=== PATIENT | female | born 1950 | race Caucasian/White ===

== ENCOUNTER 2019-12-26 10:12 | Emergency (ER) | payer MEDICARE, MEDICAID ==
[~2019-12-26] VITALS: Ht 157.5 cm; Wt 57.7 kg
[2019-12-26 10:19] VITALS: TEMP 98.5
[2019-12-26 12:21] VITALS: BP 122/60; PULSE 79
== END 2019-12-26 11:45 | disposition home or self-care (01) ==
LOC: COL.ER 10:12
DX: S06.0X1A Concussion with loss of consciousness of 30 minutes or less, initial encounter (principal); R40.2410 Glasgow coma scale score 13-15, unspecified time; Z88.0 Allergy status to penicillin; Z88.6 Allergy status to analgesic agent; Z88.8 Allergy status to other drugs, medicaments and biological substances; W01.0XXA Fall on same level from slipping, tripping and stumbling without subsequent striking against object, initial encounter; Y92.009 Unspecified place in unspecified non-institutional (private) residence as the place of occurrence of the external cause

== ENCOUNTER 2020-01-04 09:00 | Outpatient (RCR) | payer MEDICARE, MEDICAID ==
[2020-01-28] MEDS ORDERED: CYMBALTA 60MG60 MG PO (11:45)
[2020-01-28] MEDS ORDERED: LYRICA 150MG C150 MG PO (11:47)
[2020-01-28] MEDS ORDERED: DESYREL 50MG50 MG PO (11:48)
[2020-01-28] MEDS ORDERED: TUMERIC PO (11:49)
[2020-01-28] MEDS ORDERED: TRULICITY1.5 MG/0.5 SQ (11:58)
== END 2020-02-10 14:30 | disposition home or self-care (01) ==
LOC: WSOT 09:00
DX: S52.502A Unspecified fracture of the lower end of left radius, initial encounter for closed fracture (principal)

== ENCOUNTER → 2020-01-07 | Outpatient (CLI) | payer MEDICARE, MEDICAID | LOC: COL.RAD 09:33 | DX: E04.1 Nontoxic single thyroid nodule (principal) ==

== ENCOUNTER 2020-02-05 13:00 | Outpatient (RCR) | payer MEDICARE, MEDICAID ==
[~2020-02-05 13:00] MED LIST: CYMBALTA 60MG60 MG PO; DESYREL 50MG50 MG PO; LYRICA 150MG C150 MG PO; TRULICITY1.5 MG/0.5 SQ; TUMERIC PO
== END 2020-02-22 | disposition home or self-care (01) ==
LOC: WSC
DX: M17.12 Unilateral primary osteoarthritis, left knee (principal); Z96.651 Presence of right artificial knee joint

== ENCOUNTER 2020-03-15 18:32 | Inpatient (IN) | payer MEDICARE, MEDICAID ==
[~2020-03-15] VITALS: Ht 157.5 cm; Wt 58.2 kg
[~2020-03-15 18:32] MED LIST changes: -TUMERIC PO; +TURMERIC500 MG PO
--- NOTE | 2020-03-15 22:40 | NUR ---
Pt. arrived to the floor via strecher. Pt. transferred with 2 assist and slide board. Pt. is a&OX3, assessment complete. INT to rt. forearm patent. Pt. reports pain at a 9 on pain scale. Pt. denies further needs, call light within reach.
[2020-03-15 22:42] LABS: BASO # 0.1 (0.0-0.2); BASO % 0.7 % (0.0-2.0); EOS # 0.1 (0.0-0.7); EOS % 0.7 % (0-4.0); GRAN # 6.1 (1.4-6.5); GRAN % 70.8 % (42.2-75.2); HEMATOCRIT 37.5 % (37.0-47.0); LYMPH # 1.8 (1.2-3.4); LYMPH % 20.7 % (20.0-51.0); MEAN CELL VOLUME 87 fl (80.0-100.0); MEAN CORPUSCULAR HEMOGLOBIN 28 pg (27.0-31.0); MEAN CORPUSCULAR HGB CONC 32 g/dl (33.0-37.0); MEAN PLATELET VOLUME 10.3 fl (7.4-10.4); MONO # 0.6 (0.1-0.6); MONO % 6.8 % (1.7-9.3); PLATELET COUNT 248 K/mm3 (130-400); RED BLOOD COUNT 4.29 M/mm3 (4.10-5.30); REDCELL DISTRIBUTION WIDTH-CV 13.2 % (11.5-14.5)
[2020-03-15 22:47] LABS: PROTHROMBIN TIME 11.6 SECONDS (9.7-12.8)
[2020-03-15 22:50] LABS: ALBUMIN 3.9 gm/dL (3.5-5.0); BILIRUBIN,TOTAL 0.7 mg/dL (0.0-1.0); CALCIUM 9.2 mg/dL (8.4-10.2); CREATININE, serum 1.1 (0.52-1.25); TOTAL PROTEIN 7.2 gm/dL (6.4-8.2)
[2020-03-15 23:15] VITALS: BP 112/48; PULSE 83; TEMP 98.7
[2020-03-15 23:20] LABS: COLLECTION METHOD CLEAN CATCH
[2020-03-15 23:27] LABS: PH 7 (5-8); SQUAMOUS EPITHELIAL None Seen /hpf; URINE APPEARANCE Clear; URINE BACTERIA None Seen /hpf; URINE BILIRUBIN Negative (NEGATIVE); URINE BLOOD Negative (NEGATIVE); URINE COLOR Straw; URINE GLUCOSE Negative (NEGATIVE); URINE KETONE Negative (NEGATIVE); URINE LEUKOCYTE ESTERASE Negative (NEGATIVE); URINE NITRATE Negative (NEGATIVE); URINE PROTEIN(semi-quant) Negative (NEGATIVE); URINE RBC 0-2 /hpf; URINE UROBILINOGEN Negative (NEGATIVE)
[2020-03-16] VITALS (13 sets, daily range): BP systolic 89–140; BP diastolic 41–64; PULSE 75–81; TEMP 97.7–98.8
--- NOTE | 2020-03-16 08:00 | NUR ---
PATIENT IS A&O. VSS WITH TELE INPLACE. NPO FOR POSSIBLE SURGERY TODAY TO REPAIR LEFT HIP FX. PATIENT COMFORTABLE IN BED. HUYNH TO AVERY. IV FLUIDS INFUSING VIA PUMP INTO RIGHT FORARM. HEAD TO TOE ASSESSMENT COMPLETE. AM MEDS GIVEN.
--- NOTE | 2020-03-16 11:38 | NUR ---
DR.HODGES LOPEZ.
--- NOTE | 2020-03-16 12:35 | NUR ---
First visit from the job estimator. No needs right now.
--- NOTE | 2020-03-16 12:53 | NUR ---
PATIENT GOING DOWN TO OR VIA BED. CONSENT ON CHART.
--- NOTE | 2020-03-16 15:00 | NUR ---
PATIENT BACK IN ROOM 347 POST OP. PATIENT IS ORIENTED BUT VERY DROWSY. VSS. NO C/O PAIN IN LLE AT THIS TIME. PATIENT IS UNABLE TO MOVE BLE. LEFT HIP DRESSING IS CD&I WITH FOAM DRESSING AND ICE PACK INPLACE. TEDS TO RLE. SCD'S TO BLE. POSITIVE PEDAL PULSES TO BLE. HUYNH TO DD. IV FLUIDS INFUSING INTO RIGHT FORARM VIA PUMP. NO C/O N/V. LIQUIDS AT BEDSIDE. HEAD TO TOE ASSESSMENT WNL.
--- NOTE | 2020-03-16 15:22 | NUR ---
Die Operator was unable to meet with patient for intake as she is in surgery. SW contacted patient's granddaughter, Marta (ph#[phone]) to discuss discharge planning. Patient lives with Marta and her , Arthur here in [place] and sees Dr. Hazel for primary care. Patient obtains medications at [facility] and normally does not use any DME. Marta reports that normally patient does everything independently. Marta is unsure if patient has ever done DPOA-HC. SW discussed post acute rehab with Marta as this will likely be recommended after surgery. Marta was open to have referrals sent to the three local SNFs: [facility], [facility], and [facility]. ALTHEA faxed referrals. ALTHEA contacted BG PreciadoCM at [facility] and patient does not have Advance Directives on file with them. SW will continue to follow.
--- NOTE | 2020-03-16 20:18 | NUR ---
Pt in bed, reports pain 5/10 to left hip. Has bulky drsg to left hip. Pt is alert and oriented x4. IV to right wrist without redness or swelling. Takes [place] 1 tab po for pain.
--- NOTE | 2020-03-16 20:30 | NUR ---
Has moderate BM on bedpan.
[2020-03-17] VITALS (9 sets, daily range): BP systolic 89–121; BP diastolic 43–55; PULSE 73–83; TEMP 97.6–99.6
--- NOTE | 2020-03-17 06:00 | NUR ---
HAS RESTED WELL. DENIES NEED FOR PAIN MEDS AT THIS TIME.
[2020-03-17 06:41] LABS: BASO % 0.5 % (0.0-2.0); EOS # 0.2 (0.0-0.7); EOS % 3.2 % (0-4.0); GRAN # 3.3 (1.4-6.5); GRAN % 53.3 % (42.2-75.2); LYMPH % 32.4 % (20.0-51.0); MEAN CELL VOLUME 89 fl (80.0-100.0); MEAN CORPUSCULAR HGB CONC 32 g/dl (33.0-37.0); MEAN PLATELET VOLUME 10.9 fl (7.4-10.4); MONO # 0.6 (0.1-0.6); MONO % 10.4 % (1.7-9.3); PLATELET COUNT 195 K/mm3 (130-400); REDCELL DISTRIBUTION WIDTH-CV 13.2 % (11.5-14.5)
[2020-03-17 06:51] LABS: HEMATOCRIT 30.4 % (37.0-47.0); HEMOGLOBIN 9.8 g/dl (12.5-16.0); MEAN CORPUSCULAR HEMOGLOBIN 29 pg (27.0-31.0)
[2020-03-17 06:53] LABS: CALCIUM 8.1 mg/dL (8.4-10.2); CREATININE, serum 1.18 (0.52-1.25); POTASSIUM 3.5 mmol/L (3.4-5.0)
--- NOTE | 2020-03-17 08:00 | NUR ---
Patient in bed resting. Alert and oriented x 3. Assessment complete. Denies pain at this time. Occlusive dressing to LLE is CDI. Baptiste to DD with clear yellow urine present. Pedal pulses intact. Patient refusing ANCA hose at this time. SCDs to BLE. Denies further needs at this time.
--- NOTE | 2020-03-17 11:14 | NUR ---
Patient sitting up in recliner. States pain 5/10 to LLE. Denies need for additional pain medication at this time.
[2020-03-17 15:40] LABS: HEMATOCRIT 30.6 % (37.0-47.0); HEMOGLOBIN 9.9 g/dl (12.5-16.0)
--- NOTE | 2020-03-17 15:54 | NUR ---
Agricultural And Forestry Supervisor gave referral to [facility]PR Director as GINA Figueroa felt patient would be a good candidate for Inpatient Rehab. ALTHEA met with patient who states she would prefer to stay here for IPR. [facility] met with patient and can accept patient. ALTHEA will continue to follow. ALTHEA contacted Robbie at [facility] [address] and Nicole at [facility] to provide update on preferences. ALTHEA will continue to follow.
--- NOTE | 2020-03-17 19:07 | NUR ---
Patient has done well throughout the day. Sat up in recliner today. Baptiste discontinued at approximately 1800, patient denies need to void at this time. Denies further needs at this time. Will report off to dry house tender.
--- NOTE | 2020-03-17 20:46 | NUR ---
Pt has used the BSC x1. In bed at this time, HS meds given including [place] for pain. Has SL to right forearm, flushes well. Has bulky drsg to left hip.
[2020-03-18 03:46] VITALS: BP 109/53; PULSE 80; TEMP 98.7
--- NOTE | 2020-03-18 04:00 | NUR ---
Resting well, denies needs at this time.
[2020-03-18 06:25] LABS: BASO % 0.5 % (0.0-2.0); EOS # 0.2 (0.0-0.7); EOS % 2.4 % (0-4.0); GRAN # 4.7 (1.4-6.5); GRAN % 60.3 % (42.2-75.2); LYMPH # 2.1 (1.2-3.4); LYMPH % 27.1 % (20.0-51.0); MEAN CELL VOLUME 87 fl (80.0-100.0); MEAN CORPUSCULAR HGB CONC 32 g/dl (33.0-37.0); MEAN PLATELET VOLUME 10.9 fl (7.4-10.4); MONO # 0.8 (0.1-0.6); MONO % 9.6 % (1.7-9.3); PLATELET COUNT 207 K/mm3 (130-400); RED BLOOD COUNT 3.49 M/mm3 (4.10-5.30); REDCELL DISTRIBUTION WIDTH-CV 13.2 % (11.5-14.5)
[2020-03-18 06:34] LABS: HEMATOCRIT 30.5 % (37.0-47.0); HEMOGLOBIN 9.8 g/dl (12.5-16.0); MEAN CORPUSCULAR HEMOGLOBIN 28 pg (27.0-31.0)
[2020-03-18 06:42] LABS: CALCIUM 8.4 mg/dL (8.4-10.2); CREATININE, serum 1.22 (0.52-1.25); POTASSIUM 4.3 mmol/L (3.4-5.0)
--- NOTE | 2020-03-18 07:05 | NUR ---
PT RESTING IN BED AT BEDSIDE SHIFT REPORT. ORTHO PA IN TO DISCUSS DISCHARGE TO [facility] AND DRSG CHANGE DISCUSSED. PT REPORTS PAIN IS THERE BUT NOT BAD THIS AM.
[2020-03-18 07:07] VITALS: BP 96/45; PULSE 82; TEMP 98.9
[2020-03-18 08:32] VITALS: BP 102/48; PULSE 82
[2020-03-18] MEDS ORDERED: NORCO 325 MG-51 TAB PO (09:15)
[2020-03-18] MEDS ORDERED: XARELTO10 MG PO (09:15)
[2020-03-18] MEDS ORDERED: TYLENOL 500MG500 MG PO (09:16)
[2020-03-18] MEDS ORDERED: OSCAL 500 TAB500 MG PO (09:16)
[2020-03-18] MEDS ORDERED: GOOD SENSE400 MG/5 M PO (09:16)
[2020-03-18] MEDS ORDERED: DUO-KAPS1 CAP PO (09:17)
[2020-03-18] MEDS ORDERED: VITAMIN C500 MG PO (09:17)
--- NOTE | 2020-03-18 10:56 | NUR ---
PT GIVEN PRN NORCO PRIOR TO THERAPY THIS AM. REPORTS PAIN LEVEL OF 3/10. CONTINUING TO ENCOURAGE PT TO INCREASE FLUID INTAKE. PT TRANSFERRING WELL WITH ONE ASSIT. SKIN INTACT UPON ASSESMENT. PT TRANSFERRING OVER TO ROOM 334.
--- NOTE | 2020-03-18 11:27 | NUR ---
Patient to discharge to [facility] today. No additional needs at this time.
[2020-03-18] MEDS ORDERED: NOVLOG SQ (12:47)
== END 2020-03-18 10:58 | DRG 482 ==
LOC: COL.ER 18:32 → SURG 21:19
PROVIDERS: Nurse Practitioner; Orthopaedic Surgery; Physician Assistant; ADMIT Hospitalist
PROC: 0QS634Z Reposition Right Upper Femur with Internal Fixation Device, Percutaneous Approach (ICD-10-PCS; principal; 2020-03-16 13:30)
DX: S72.002A Fracture of unspecified part of neck of left femur, initial encounter for closed fracture (principal); W01.0XXA Fall on same level from slipping, tripping and stumbling without subsequent striking against object, initial encounter; Y92.89 Other specified places as the place of occurrence of the external cause; F32.9 Major depressive disorder, single episode, unspecified; G25.81 Restless legs syndrome; E11.9 Type 2 diabetes mellitus without complications; G47.00 Insomnia, unspecified; F41.9 Anxiety disorder, unspecified; M79.7 Fibromyalgia; G62.9 Polyneuropathy, unspecified; D64.9 Anemia, unspecified; I95.9 Hypotension, unspecified; Q24.9 Congenital malformation of heart, unspecified; Z95.0 Presence of cardiac pacemaker; Z87.891 Personal history of nicotine dependence
CPT/HCPCS: 99222-AI; 99232-AI; 99233-AI; 99239; A9284; C1713; J0690; J1815; J2704; J3010; J7030

== ENCOUNTER 2020-03-18 10:18 | Inpatient (IN) | payer MEDICARE, MEDICAID ==
[~2020-03-18] VITALS: Ht 157.5 cm; Wt 61.2 kg
[~2020-03-18 10:18] MED LIST changes: +DUO-KAPS1 CAP PO; +GOOD SENSE400 MG/5 M PO; +NORCO 325 MG-51 TAB PO; +OSCAL 500 TAB500 MG PO; +TYLENOL 500MG500 MG PO; +VITAMIN C500 MG PO; +XARELTO10 MG PO
[2020-03-18] MEDS ORDERED: NOVLOG SQ (12:47)
[2020-03-18 13:04] VITALS: BP 114/50; PULSE 80; TEMP 98.1
--- NOTE | 2020-03-18 18:18 | NUR ---
PT TRANSFERRED FROM ROOM 347 TO ROOM 334 BY PT. PT ORIENTED TO THE UNIT AND WORKED WITH PT AND OT. ADMISSION ASSESSMENTS COMPLETE, BIMS COMPLETED, MED REC COMPLETED. PT REPORTING 3/10 PAIN AT MOST. RECEIEVED ONE PRN ALLYN THIS AM. DRSG CHANGED TO [facility] PER ORDERS. TELE DISCONTINUED. IV LEFT INTACT AT THIS TIME, BECAUSE PT HAS SOFT BPS AND IS NOT COMPLIANT TO DRINK MORE FLUIDS.
--- NOTE | 2020-03-19 01:43 | NUR ---
PT CALLS FOR SBA TO BR WITH USE OF WALKER AND GAIT BELT. SCD'S ON THRU THE NIGHT. BED ALARM ON. RIGHT HIP INCISION OPEN TO AIR. EDGES WELL APPROXIMATED.
--- NOTE | 2020-03-19 02:37 | NUR ---
PT IN [employer] SPIRITS. STEADY GAIT TO BR WITH USE OF WALKER AND GAIT BELT AND SBA. INT TO R FA INTACT. RECEIVED 6 UNITS NOVOLOG FOR A BS OF 266 AT HS. REQUESTED AND GIVEN 1 NORCO / AT HS. BED ALARM ON. CALL LIGHT IN REACH.
[2020-03-19 04:49] VITALS: BP 103/50; PULSE 77; TEMP 98.7
--- NOTE | 2020-03-19 08:15 | NUR ---
Patient resting in bed is independent with eating and currently on her phone. Patient denies need for any pain meds at this time. Will continue to monitor.
--- NOTE | 2020-03-19 10:20 | NUR ---
Patient sleeping in bed at this time. Will continue to monitor.
--- NOTE | 2020-03-19 12:59 | NUR ---
Patient resting in recliner, call light in reach and chair alarm set. Patient eating her lunch independently in her room.
--- NOTE | 2020-03-19 14:11 | NUR ---
ALTHEA update: SW met with patient. Patient transferred from 347 to 334. Patient reports that she has two EMR contacts. Berhane GrandDTR and Arthur Butler GrandSon. Patient reports that she resides with her GDtr and her spouse. Patient reports that she would like to return home independently and not use any additional services. Not opposed to [facility]. Patient reports that she has stairs at her residence and wants to be able to get up the stairs. No advanced directive. PCP / Yasemin, [facility]. Will continue to follow care.
[2020-03-19 17:45] VITALS: BP 117/54; PULSE 79; TEMP 98.7
--- NOTE | 2020-03-19 19:16 | NUR ---
PT RESTING IN BED WATCHING TV. SHIFT ASSESSMENT COMPLETE. DENIES PAIN, SOA. CALL LIGHT IN REACH. BED ALARM ON.
[2020-03-20 05:51] VITALS: BP 107/50; PULSE 69; TEMP 97.9
--- NOTE | 2020-03-20 11:08 | NUR ---
Patient set up assist with dressing upper, mod assist with lower. Max assist with putting shoes and crescencio hose on. Patient tolerated diet well this morning. Getting ready to go for a walk following her grooming.
--- NOTE | 2020-03-20 11:32 | NUR ---
Patient was able to wash her upper and lower body with wet cloth. Patient was a set up for upper dressing and touch assist with lower dressing. She was max assist with getting crescencio hose on each leg. Patient was independent with brushing teeth and brushing and styling hair. Patient walked from [facility] around Surgical area and returned to her room with walker and gait belt needing only touch assist at times. Patient tolerating pain to left hip well this shift and given prn pain med this morning. Patient's aquacel is CDI and has no drainage. Patient currently resting in bed, call light in reach and bed alarm is set. Will continue to monitor.
[2020-03-20 16:30] VITALS: BP 129/45; PULSE 72; TEMP 98.1
--- NOTE | 2020-03-20 18:58 | NUR ---
RECEIVED CHANGE OF SHIFT REPORT FROM DAY SHIFT NURSE.
--- NOTE | 2020-03-20 20:00 | NUR ---
DECREASED ROM AND STRENGTH TO LLE D/T RECENT FX HIP REPAIR SURGERY. DENIES NUMBNESS/TINGLING TO EXTREMITIES. DENIES CHEST PAIN/SOA. BED ALARM ON WHEN IN BED.
[2020-03-21 05:55] VITALS: BP 129/33; PULSE 74; TEMP 97.8
--- NOTE | 2020-03-21 07:23 | NUR ---
CHANGE OF SHIFT REPORT GIVEN TO DAY SHIFT NURSEMILLIE.
--- NOTE | 2020-03-21 08:34 | NUR ---
PT SLEEPING IN BED AT BEDSIDE SHIFT REPORT. BED ALARM ON, CALL LIGHT WITHIN REACH. PT REPORTED 3/10 PAIN LEVEL AND RECEIEVE PRN NORCO PRIOR TO THERAPY THIS AM.
--- NOTE | 2020-03-21 15:15 | NUR ---
PT GIVEN PRN SUPPOSITORY THIS AFTERNOON. PT REPORTS MEDIUM SIZED SF BOWEL, STATES SHE FEELS LIKE SHE WILL HAVE TO GO MORE LATER.
[2020-03-21 16:05] VITALS: BP 139/59; PULSE 70; TEMP 98.4
--- NOTE | 2020-03-21 19:08 | NUR ---
Received report from Suzette. Seen patient awake in bed. She is alert and oriented. She denies pain. Bed alarm on.
--- NOTE | 2020-03-21 22:00 | NUR ---
Patient requested for pain pill before she goes to bed. Assisted her to the bathroom. Patient tries to do everything as much as she can as she said that when she gets home she wants to be prepared in ambulating and doing some things independently.
[2020-03-22 05:58] VITALS: BP 126/57; PULSE 72; TEMP 98.1
--- NOTE | 2020-03-22 06:26 | NUR ---
Patient had uneventful night. With complains of mild pain only. She was able to ambulate well with her walker.
--- NOTE | 2020-03-22 06:51 | NUR ---
PT SLEEPING IN BED AT BEDSIDE SHIFT REPORT. BED IN LOW, CALL LIGHT WITHIN REACH.
--- NOTE | 2020-03-22 13:30 | NUR ---
Admission QIM scores were reviewed by the team. Code of 4 chosen for oral hygiene was determined by team discussion to be the most usual performance before interventions for this patient during the assessment period. Code of 88 chosen for toileting transfers was determined by team discussion to be the most usual performance for this patient during the assessment period. Code of 88 chosen for shower/bathe self was determined by team discussion to be the most usual performance for this patient during the assessment period. Code of 88 chosen for lower body dressing was determined by team discussion to be the most usual performance for this patient during the assessment period. Code of 88 chosen for rolling left to right was determined by team discussion to be the most usual performance for this patient during the assessment period. Code of 88 chosen for lying to sitting on side of bed was determined by team discussion to be the most usual performance for this patient during the assessment period. Code of 3 for sit to stand was determined by team discussion to be the most usual performance for this patient during the assessment period. Code of 88 for chair/bed to chair transfers was determined by team discussion to be the most usual performance for this patient during the assessment period. Code of 88 chosen for walk 10 feet was determined by team discussion to be the most usual performance for this patient during the assessment period. Code of 88 chosen for walk 50 feet w/ 2 turns was determined by team discussion to be the most usual performance for this patient during the assessment period.--PD Kana
--- NOTE | 2020-03-22 16:01 | NUR ---
Take Off Worker met with the patient to follow up. The patient does not have a walker and inquired about ordering one. She chose [facility]. This SW will order a walker closer to discharge. The patient had no other questions or needs at this time.
[2020-03-22 16:30] VITALS: BP 122/78; PULSE 78; TEMP 98.2
--- NOTE | 2020-03-22 17:49 | NUR ---
PT RECEIEVED BRENDA GRUBER PRIOR TO THERAPY THIS AM. REPORTS 6/10 PAIN AT HIGHEST, UTILIZES ICE THERAPY. PT VERY IND WITH CARES AND VERY WILLING TO TRY TO DO MORE ON HER OWN. DO HAVE TO REMIND PT SHE STILL NEEDS NRSG ASSISTANCE FOR CERTAIN THINGS.
--- NOTE | 2020-03-22 20:00 | NUR ---
Pt. sitting up in bed. Pt. is A&OX3, assessment complete. Dressing to lt. hip CDI. Pt. reports pain at a 2 on pain scale. Pt. denies further needs.
[2020-03-23 04:55] VITALS: BP 130/76; PULSE 84; TEMP 98.6
[2020-03-23 08:29] VITALS: BP 122/60; PULSE 73
--- NOTE | 2020-03-23 09:17 | NUR ---
Patient working with therapy at this time. Patient reported a headache this morning and given prn Tylenol. VSS. Will continue to monitor.
--- NOTE | 2020-03-23 14:49 | NUR ---
Advanced Manager met with the patient to review the Team Conference Note. The team is recommending a discharge on Saturday, 03/25 with home health services. SW presented Medicare.gov's list of home health agencies that serve the [facility]. The patient chose [facility]. Referral faxed. The patient had no questions at this time.
--- NOTE | 2020-03-23 15:04 | NUR ---
Patient attended all therapies today. Her weight was taken and documented in the EMR. This nurse placed a call to Dr. Hazel's office to schedule a f/u after discharge. Awaiting a return call.
[2020-03-23 16:02] VITALS: BP 139/60; PULSE 79; TEMP 97.8
--- NOTE | 2020-03-23 19:32 | NUR ---
Patient is Mod I in room with walker and can walk in IPR hallway if she asks for permission. Patient was independent on all her grooming today. Follow up Appointments were made with cardiology and Ortho. Still awaiting return call for PCP.
--- NOTE | 2020-03-23 19:33 | NUR ---
RECEIVED CHANGE OF SHIFT FROM DAY SHIFT NURSE.
[2020-03-24 05:18] VITALS: BP 111/52; PULSE 71; TEMP 98
--- NOTE | 2020-03-24 13:47 | NUR ---
Transportation Engineering Technician faxed walker order to [facility]. Brianne with [facility] reports they can accept the patient for services.
[2020-03-24 18:50] VITALS: BP 123/47; PULSE 73; TEMP 98.8
--- NOTE | 2020-03-24 19:42 | NUR ---
RECEIVED CHANGE OF SHIFT REPORT FROM DAY SHIFT NURSE.
--- NOTE | 2020-03-24 20:00 | NUR ---
DECREASED ROM/STRENGTH TO L HIP D/T RECENT HIP SURGERY. DENIES CHEST PAIN/SHORTNESS OF BREATH/NAUSEA/NUMBNESS/TINGLING AT THIS TIME. PATIENT UP AD MADELEINE IN ROOM WITH NO PROBLEMS.
--- NOTE | 2020-03-24 22:34 | NUR ---
Patient completed all her therapies today. She tolerated all her meals. She had a headache this morning and was given prn tylenol with good effect. Patient's son visited with her this afternoon and this nurse answered questions about discharge with them. Patient's son voiced understanding. Reported off to night nurse.
[2020-03-25 04:58] VITALS: BP 127/57; PULSE 68; TEMP 98.6
--- NOTE | 2020-03-25 07:35 | NUR ---
CHANGE OF SHIFT REPORT GIVEN TO DAY SHIFT NURSEMILLIE.
[2020-03-25] MEDS ORDERED: NORCO 325 MG-51 TAB PO (09:36)
--- NOTE | 2020-03-25 09:44 | NUR ---
PT SLEEPING IN BED AT BEDSIDE SHIFT REPORT. MOD-I IN ROOM DISCHARGE TODAY.
--- NOTE | 2020-03-25 11:40 | NUR ---
The patient is to discharge home today, 03/25 with [facility]. The patient is to have PT/OT/Nursing services. Discharge orders faxed. SW met with the patient to review the IM form. The patient understood and signed the form. A copy was provided to the patient. The patient's family will be providing transportation. There are no additional needs.
--- NOTE | 2020-03-25 18:55 | NUR ---
PT HEALTH SUMMARY, DISCHARGE SUMMARY, AND HOME MEDS PRINTED AND REVIEWED WITH PT AND RELATION. STRESSED IMPORTANCE OF FU APTTS. REVIEWED MEDICATIONS, PROVIDED PRINTED PRESCRIPTION FOR NORCO. CALLED PRESCRIPTIONS TO PHARMACY OF CHOICE. BELONGINGS GATHERED BY DIRECTOR OF ROTC INCLUDING VALUABLES. PT TRANSPORTED VIA WC BY DIRECTOR OF ROTC AND SEATBELTED FOR RIDE HOME. PT DENIED QUESTIONS.
== END 2020-03-25 16:15 | disposition home health service (06) | DRG 561 ==
PROVIDERS: ADMIT Internal Medicine
DX: S72.002D Fracture of unspecified part of neck of left femur, subsequent encounter for closed fracture with routine healing (principal); E11.42 Type 2 diabetes mellitus with diabetic polyneuropathy; I95.9 Hypotension, unspecified; D64.9 Anemia, unspecified; M79.7 Fibromyalgia; F41.9 Anxiety disorder, unspecified; F32.9 Major depressive disorder, single episode, unspecified; G47.00 Insomnia, unspecified; W00.9XXD Unspecified fall due to ice and snow, subsequent encounter; Z79.891 Long term (current) use of opiate analgesic; Z95.0 Presence of cardiac pacemaker; Z96.659 Presence of unspecified artificial knee joint; Z88.0 Allergy status to penicillin; Z88.6 Allergy status to analgesic agent; Z88.5 Allergy status to narcotic agent
CPT/HCPCS: 99222-AI; 99231-AI; 99232-AI; 99239; J1815

== ENCOUNTER → 2020-06-10 | Outpatient (CLI) | payer MEDICARE, MEDICAID ==
[~2020-06-10] MED LIST changes: +NOVLOG SQ
== END ==
LOC: MC.RAD 12:55
DX: Z12.31 Encounter for screening mammogram for malignant neoplasm of breast (principal)